=== PATIENT | male | born 2000 | race Caucasian/White ===

== ENCOUNTER 2020-09-23 20:02 | Emergency (ER) | payer BC, OTHER, SELFPAY ==
--- NOTE | ~2020-09-23 | XR_ITS ---
EXAMINATION: XR ELBOW, LEFT CLINICAL INFORMATION: Fall. Question dislocation. COMPARISON: None TECHNIQUE: AP, lateral, and oblique views of the left elbow. FINDINGS: No fracture or dislocation. Alignment is anatomic. Joint spaces are maintained. No elbow joint effusion. The soft tissues are unremarkable. XR/XR elbow LT 2V IMPRESSION: Normal left elbow.
--- NOTE | ~2020-09-23 | XR_ITS ---
EXAMINATION: XR SHOULDER, LEFT CLINICAL INFORMATION: Pain on range of motion COMPARISON: None TECHNIQUE: Three views of the left shoulder. FINDINGS: The bones and soft tissues are normal. No fracture. Glenohumeral and acromioclavicular alignment is anatomic with normal joint space. No abnormal soft tissue calcifications. XR/XR shoulder LT min 2V IMPRESSION: Normal left shoulder.
[2020-09-23 20:23] VITALS: BP 133/68; PULSE 101; RESP 20; TEMP 36; O2SAT 97; BMI 31.2
--- NOTE | 2020-09-23 21:20 | ED.EXTPRO ---
HPI - Extremity Problem General Chief complaint: Extremity Injury, Upper Stated complaint: shoulder displacement Time Seen by Provider: 09/23/20 21:17 Source: patient and other Mode of arrival: ambulatory History of Present Illness HPI Narrative: This is a 20-year-old male who is brought in from his nursing home after he reports that he had his left arm underneath his body, and on triage note says that patient fell off of bed and patient states that he felt a pop. Patient has had a dislocated left elbow in the past. Patient reports pain at the left antecubital as well as the proximal portion of the left upper arm. Related Data Allergies Allergy/AdvReac Type Severity Reaction Status Date / Time No Known Allergies Allergy Unverified 01/03/20 16:58 Review of Systems Review of Systems: Pertinent positives and negatives as stated in HPI 10 point review of systems is otherwise negative. PMFSH Past Medical History Source: nursing notes reviewed Social History Social History Advance Directives: No Advance Directives Information Provided: Yes Physical Exam Vital Signs: Vital Signs: Last Vital Signs Temp 96.8 F 09/23/20 20:23 Pulse 101 H 09/23/20 20:23 Resp 20 09/23/20 20:23 BP 133/68 09/23/20 20:23 Pulse Ox 97 09/23/20 20:23 Body Mass Index 31.2 VITAL SIGNS: Reviewed. GENERAL: Well developed, well nourished, in no acute distress. HEAD: Normocephalic/atraumatic EYES: PERRLA, EOMI OROPHARYNX: no oral lesions noted, posterior pharynx clear NECK: Supple, no adenopathy LUNGS: Normal breath sounds. No adventitious sounds or accessory muscle use. SpO2<97> CARDIOVASCULAR: Regular rate and rhythm without noted murmurs ABDOMEN: Soft, non-tender, non-distended with bowel sounds. LUE: No obvious deformity noted, strong palpable pulses at radial/ulnar/brachial/axillary, good capillary refill, sensation intact Course Course Course Narrative: This is a 20-year-old male with history and clinical presentation of elbow pain and on review of imaging there is no evidence of dislocation or fracture at the elbow, but patient having significant pain on passive range of motion at the medial aspect over biceps tendon with tenderness on palpation of distal biceps head as well as pain at the medial aspect near the proximal arm. Review of all imaging studies negative for any acute findings to suggest biceps tendon rupture, fracture, or dislocation. There is a possibility the patient may have initially dislocated and then reduced his own left elbow and is having residual pain as expected. Discharge Plan Discharge Clinical Impression: Elbow pain, left Patient Disposition: Home, Self-Care Instructions: Arthritis (ED) Additional Instructions: Resume all home medications as prescribed. Follow-up with your primary care provider in the next 1-2 days for re-evaluation. Return to the emergency room for any acute worsening of your symptoms. Referrals: Physician,Unknown [Primary Care Provider] - 2 days
[2020-09-23 22:02] VITALS: BP 122/69; PULSE 67; RESP 16; O2SAT 97
== END 2020-09-23 22:14 | disposition home or self-care (01) ==
PROVIDERS: Emergency Provider Student in an Organized Health Care Education/Training Program
DX: M25.522 Pain in left elbow (principal)
CPT/HCPCS: 73030; 73070; 99283; 99284